=== PATIENT | female | born 1970 | race Caucasian/White ===

== ENCOUNTER 2016-06-18 13:21 | Inpatient (IN) | payer OTHER ==
[~2016-06-18] VITALS: Ht 160 cm; Wt 79.5 kg
[~2016-06-18 13:21] MED LIST: AMBI10TA PO; BUSP10TA PO; LIPI20TA PO; PERM5CRE TOPICAL
[2016-06-18 13:25] VITALS: BP 147/73; PULSE 80; RESP 16; TEMP 98.2; O2SAT 98
[2016-06-18] MEDS ORDERED: JUNETAB PO (17:01)
[2016-06-18] MEDS ORDERED: TEMA30CA PO (17:01)
[2016-06-18] MEDS ORDERED: CIPR-9 PO (17:01)
--- NOTE | 2016-06-18 17:13 | PD ---
HPI Chief Complaint: Skin Problem Time Seen by Provider: 17:12 Travel History International Travel<30 days: No Contact w/Intl Traveler<30days: No Traveled to known affect area: No History of Present Illness HPI 46-year-old female with history of hypercholesterolemia and breast augmentation [address] Escalante, presents to the emergency for evaluation.. Patient began having erythema inferior to her areola earlier this week Patient was initially started on Bactrim earlier this week.. She saw Dr. Escalante 2 days ago who switched her to ciprofloxacin. Patient was instructed to come to the emergency department if anything worsen. Patient began having low-grade temperature last evening. She states the redness has spread. She is having an increase in pain. Denies any other symptoms at this time. PFSH Past Medical History Anxiety: Yes High Cholesterol: Yes Diminished Hearing: No ?: Not LMP: 06/06/16 Social History Alcohol Use: No Tobacco Use: No Substance Use: No Allergies-Medications (Allergen,Severity, Reaction): Coded Allergies: No Known Allergies (Unverified , 02/06/16) Reported Meds & Prescriptions Reported Meds & Active Scripts Active Reported Temazepam 30 Mg Cap 30 Mg PO HS PRN 04/08 (Norethindrone-Ethinyl Estradiol) 1-20 Mg-Mcg Tab 1 Tab PO DAILY Cipro (Ciprofloxacin HCl) 500 Mg Tab 500 Mg PO Lipitor (Atorvastatin Calcium) 20 Mg Tab 20 Mg PO HS Review of Systems Except as stated in HPI: all other systems reviewed are Neg Physical Exam Narrative GENERAL: Well-nourished female patient, in no acute distress SKIN: Focused skin assessment warm/dry. All incision sites around the area a lot and inferior breast with incision and the breast cleft near the chest wall. There is a 6 cm area of erythema in diameter inferior to the area a lot. Incision site under the left breast is with a spot of dehiscence and yellow slough. There is a very small area of dehiscence in the right incision site inferior to the right breast. No active drainage. Breasts are warm to touch. HEAD: Atraumatic. Normocephalic. EYES: Pupils equal and round. No scleral icterus. No injection or drainage. ENT: No nasal bleeding or discharge. Mucous membranes pink and moist. NECK: Trachea midline. No JVD. CARDIOVASCULAR: Regular rate and rhythm. No murmur appreciated. RESPIRATORY: No accessory muscle use. Clear to auscultation. Breath sounds equal bilaterally. GASTROINTESTINAL: Abdomen soft, non-tender, nondistended. Hepatic and splenic margins not palpable. MUSCULOSKELETAL: No obvious deformities. No clubbing. No cyanosis. No edema. NEUROLOGICAL: Awake and alert. No obvious cranial nerve deficits. Motor grossly within normal limits. Normal speech. PSYCHIATRIC: Appropriate mood and affect; insight and judgment normal. Data Data Last Documented VS Vital Signs Date Time Temp Pulse Resp B/P Pulse Ox O2 Delivery O2 Flow Rate FiO2 06/18/16 17:20 97 Nasal Cannula 2 06/18/16 17:10 18 06/18/16 13:25 98.2 80 147/73 Orders Complete Blood Count With Diff (06/18/16 17:13) Prothrombin Time / Inr (Pt) (06/18/16 17:13) Act Partial Throm Time (Ptt) (06/18/16 17:13) Urinalysis - C+S If Indicated (06/18/16 17:13) Blood Culture (06/18/16 17:13) Blood Glucose (06/18/16 17:13) Ecg Monitoring (06/18/16 17:13) Iv Access Insert/Monitor (06/18/16 17:13) Oximetry (06/18/16 17:13) Oxygen Administration (06/18/16 17:13) Basic Metabolic Panel (Bmp) (06/18/16 17:13) Vancomycin Inj (Vancomycin Inj) (06/18/16 18:30) Sodium Chlor 0.9% 1000 Ml Inj (Ns 1000 M (06/18/16 18:30) Ketorolac Inj (Toradol Inj) (06/18/16 18:30) Piperacil-Tazo 3.375 Gm Premix (Zosyn 3. (06/18/16 19:00) Admit To Inpatient (06/18/16 ) Code Status (06/18/16 19:22) Vital Signs (Adult) Q4H (06/18/16 19:22) Activity Oob With Assistance (06/18/16 19:22) Diet Regular Basic (06/19/16 Breakfast) Sodium Chloride 0.9% Flush (Ns Flush) (06/18/16 19:30) Sodium Chloride 0.9% Flush (Ns Flush) (06/18/16 21:00) Acetaminophen (Tylenol) (06/18/16 19:30) Ondansetron Inj (Zofran Inj) (06/18/16 19:30) Magnesium Hydroxide Liq (Milk Of Magnesi (06/18/16 19:30) Temazepam (Restoril) (06/18/16 19:30) Basic Metabolic Panel (Bmp) (06/19/16 06:00) Complete Blood Count With Diff (06/19/16 06:00) Chest, Single Ap (06/18/16 19:22) Electrocardiogram (06/18/16 19:22) Scd Bilateral/Knee High NOE.BID (06/18/16 19:22) Naloxone Inj (Narcan Inj) (06/18/16 19:30) Inpatient Certification (06/18/16 ) Vancomycin Inj (Vancomycin Inj) (06/19/16 07:00) Piperacil-Tazo 4.5 Gm Premix (Zosyn 4.5 (06/19/16 01:00) Clonidine (Catapres) (06/18/16 19:30) Atorvastatin (Lipitor) (06/18/16 21:00) Consult Plastic Surgery (06/18/16 ) Admit Order (Ed Use Only) (06/18/16 19:32) Labs Laboratory Tests Test 06/18/16 17:10 White Blood Count 8.4 TH/MM3 Red Blood Count 5.18 MIL/MM3 Hemoglobin 15.2 GM/DL Hematocrit 45.9 % Mean Corpuscular Volume 88.7 FL Mean Corpuscular Hemoglobin 29.3 PG Mean Corpuscular Hemoglobin 33.0 % Concent Red Cell Distribution Width 13.2 % Platelet Count 290 TH/MM3 Mean Platelet Volume 9.2 FL Neutrophils (%) (Auto) 69.1 % Lymphocytes (%) (Auto) 19.6 % Monocytes (%) (Auto) 5.8 % Eosinophils (%) (Auto) 4.7 % Basophils (%) (Auto) 0.8 % Neutrophils # (Auto) 5.8 TH/MM3 Lymphocytes # (Auto) 1.6 TH/MM3 Monocytes # (Auto) 0.5 TH/MM3 Eosinophils # (Auto) 0.4 TH/MM3 Basophils # (Auto) 0.1 TH/MM3 CBC Comment DIFF FINAL Differential Comment Prothrombin Time 10.3 SEC Prothromb Time International 0.9 RATIO Ratio Activated Partial 24.0 SEC Thromboplast Time Urine Color LIGHT-YELLOW Urine Turbidity CLEAR Urine pH 5.5 Urine Specific [place] 1.006 Urine Protein NEG mg/dL Urine Glucose (UA) NEG mg/dL Urine Ketones NEG mg/dL Urine Occult Blood NEG Urine Nitrite NEG Urine Bilirubin NEG Urine Urobilinogen LESS THAN 2.0 MG/DL Urine Leukocyte Esterase NEG Urine RBC LESS THAN 1 /hpf Urine WBC 1 /hpf Urine Squamous Epithelial <1 /hpf Cells Urine Mucus FEW /lpf Microscopic Urinalysis Comment CATH-CULT NOT IND Sodium Level 139 MEQ/L Potassium Level 3.5 MEQ/L Chloride Level 104 MEQ/L Carbon Dioxide Level 26.2 MEQ/L Anion Gap 9 MEQ/L Blood Urea Nitrogen 9 MG/DL Creatinine 0.74 MG/DL Estimat Glomerular Filtration 84 ML/MIN Rate Random Glucose 86 MG/DL Calcium Level 9.0 MG/DL [facility] Medical Decision Making Medical Screen Exam Complete: Yes Emergency Medical Condition: Yes Medical Record Reviewed: Yes Differential Diagnosis Cellulitis versus abscess versus wound dehiscence versus postop infection Narrative Course 46-year-old female presents to emergency department for evaluation of worsening cellulitis of her bilateral breasts following augmentation. Patient is without distress. Area of erythema does extend outside of the areas marked by Dr. Escalante yesterday. I spoke with Dr. Escalante. She requests vancomycin and Zosyn and admission to medicine. I spoke with Dr. Garcia. Patient will be admitted to his service. Diagnosis Primary Impression: Cellulitis of left breast Additional Impressions: Cellulitis of right breast Failure of outpatient treatment Admitting Information Admitting Physician Requests: Admit Condition: Stable StuartMonica phambernadette NORWOOD Jun 18, 2016 17:13
[2016-06-18 17:20] VITALS: O2SAT 97
[2016-06-18 17:44] LABS: AUTOMATED NEUTROPHIL # 5.8 TH/MM3 (1.8-7.7); BASOPHIL # 0.1 TH/MM3 (0-0.2); BASOPHIL % 0.8 % (0.0-2.0); EOSINOPHIL # 0.4 TH/MM3 (0-0.4); EOSINOPHIL % 4.7 % (0.0-4.0); HEMATOCRIT 45.9 % (35.0-46.0); HEMO FLAGS DIFF FINAL; LYMPH % 19.6 % (9.0-44.0); LYMPHOCYTE # 1.6 TH/MM3 (1.0-4.8); MEAN CELL VOLUME 88.7 FL (80.0-100.0); MEAN CORPUSCULAR HEMOGLOBIN 29.3 PG (27.0-34.0); MONO % 5.8 % (0.0-8.0); NEUT % 69.1 % (16.0-70.0); PLATELET COUNT 290 TH/MM3 (150-450); RED BLOOD COUNT 5.18 MIL/MM3 (4.00-5.30); RED CELL DISTRIBUTION WIDTH 13.2 % (11.6-17.2); WHITE BLOOD COUNT 8.4 TH/MM3 (4.0-11.0)
[2016-06-18 17:56] LABS: INTERNATIONAL NORMALIZED RATIO 0.9 RATIO; PROTHROMBIN TIME - PATIENT 10.3 SEC (9.8-11.6)
[2016-06-18 18:05] LABS: BICARBONATE 26.2 MEQ/L (21.0-32.0); POTASSIUM 3.5 MEQ/L (3.5-5.1)
[2016-06-18 18:12] LABS: BLOOD, URINE NEG (NEG); COMMENT (UR) CATH-CULT NOT IND; CULTURE IF INDICATED CATH CULTURE NOT IND; GLUCOSE,URINE NEG (NEG); KETONE, URINE NEG (NEG); MUCUS URINE FEW /lpf (OCC); NITRITE,URINE NEG (NEG); PH, URINE 5.5 (5.0-8.5); SQUAMOUS EPITHELIAL CELL URINE <1 /hpf (0-5); URINE COLOR LIGHT-YELLOW (YELLW/STRAW)
[2016-06-18] MEDS ORDERED: VANCOMYCIN INJ 1,000 MG in SODIUM CHLOR 0.9% 250 ML INJ 250 ML IV ONE (18:30)
[2016-06-18] MEDS ORDERED: KETOROLAC TROMETHAMINE 30 MG/ML (IVP) VIAL IV PUSH ONE (18:30)
[2016-06-18] MEDS ORDERED: SODIUM CHLOR 0.9% 1000 ML INJ 1,000 ML IV ONE (18:30)
[2016-06-18 19:00] VITALS: BP 132/81; PULSE 68; RESP 16; TEMP 99.1; O2SAT 99
[2016-06-18] MEDS ORDERED: PIPERACIL-TAZO 3.375 GM PREMIX 50 ML IV ONE (19:00)
[2016-06-18] MEDS ORDERED: NALOXONE HCL 0.4 MG/ML AMP IV PRN (19:30)
[2016-06-18] MEDS ORDERED: MAGNESIUM HYDROXIDE SUSP 30 ML CUP PO PRN (19:30)
[2016-06-18] MEDS ORDERED: cloNIDine HCL 0.2 MG TAB PO PRN (19:30)
[2016-06-18] MEDS ORDERED: ACETAMINOPHEN 325 MG TAB PO PRN (19:30)
[2016-06-18] MEDS ORDERED: HYDR-3533 PO (19:49)
[2016-06-18] MEDS ORDERED: Vancomycin Consult Pharmacy 1 EA OTHER SCH (20:00)
--- NOTE | 2016-06-18 20:42 | RADRPT ---
EXAM DATE/TIME: 06/18/2016 20:10 [place] COMPARISON: No previous studies available for comparison. INDICATIONS : Breast infection post surgery. MEDICAL HISTORY : None. SURGICAL HISTORY : Breast implants 06/01/2016. ENCOUNTER: Initial ACUITY: 3 days PAIN SCORE: 5/10 LOCATION: chest FINDINGS: A single view of the chest demonstrates the lungs to be symmetrically aerated without evidence of mas s, infiltrate or effusion. The cardiomediastinal contours are unremarkable. Osseous structures are intact. CONCLUSION: The lungs are clear. Keshawn Jaffe MD on June 18, 2016 at 20:40 Board Certified Radiologist. This report was verified electronically.
[2016-06-18] MEDS: ATORVASTATIN 20 MG TAB PO SCH (20:54)
[2016-06-18] MEDS: ACETAMINOPHEN/HYDROcodone 325 MG/5 MG TAB PO PRN (20:55)
[2016-06-18 21:00] VITALS: BP 147/102; PULSE 83; RESP 18; TEMP 98; O2SAT 98
[2016-06-18] MEDS: SODIUM CHLORIDE 0.9% FLUSH 10 ML FLUSH IV FLUSH SCH (21:00)
--- NOTE | 2016-06-18 23:38 | EKG ---
Date Performed: 06/18/2016 Time Performed: 19:44:01 PTAGE: 46 years EKG: Sinus rhythm NORMAL ECG NO PREVIOUS TRACING DOCTOR: Regino Rodriguez Interpretating Date/Time 06/18/2016 23:37:35
[2016-06-19] VITALS: BP 110/62; PULSE 76; RESP 17; TEMP 98.4; O2SAT 98
[2016-06-19] MEDS: TEMAZEPAM 15 MG CAP PO PRN ×2 (00:23→22:53)
[2016-06-19] MEDS ORDERED: PIPERACIL-TAZO 4.5 GM PREMIX 100 ML IV SCH (01:00)
[2016-06-19 04:00] VITALS: BP 109/66; PULSE 65; RESP 16; TEMP 95.7; O2SAT 100
[2016-06-19] MEDS: VANCOMYCIN INJ 1,000 MG in SODIUM CHLOR 0.9% 250 ML INJ 250 ML IV SCH ×2 (05:11→18:01)
[2016-06-19] MEDS: ACETAMINOPHEN/HYDROcodone 325 MG/5 MG TAB PO PRN ×3 (05:11→20:53)
[2016-06-19 08:00] VITALS: BP 120/61; PULSE 65; RESP 16; TEMP 97.3; O2SAT 100
[2016-06-19 08:26] LABS: AUTOMATED NEUTROPHIL # 4.6 TH/MM3 (1.8-7.7); BASOPHIL # 0.1 TH/MM3 (0-0.2); BASOPHIL % 1.2 % (0.0-2.0); EOSINOPHIL # 0.5 TH/MM3 (0-0.4); EOSINOPHIL % 6.8 % (0.0-4.0); HEMATOCRIT 39.4 % (35.0-46.0); HEMO FLAGS DIFF FINAL; LYMPH % 19.9 % (9.0-44.0); LYMPHOCYTE # 1.4 TH/MM3 (1.0-4.8); MEAN CELL VOLUME 87.6 FL (80.0-100.0); MEAN CORPUSCULAR HEMOGLOBIN 29.7 PG (27.0-34.0); MONO % 7.9 % (0.0-8.0); NEUT % 64.2 % (16.0-70.0); PLATELET COUNT 249 TH/MM3 (150-450); RED CELL DISTRIBUTION WIDTH 13.1 % (11.6-17.2); WHITE BLOOD COUNT 7.1 TH/MM3 (4.0-11.0)
[2016-06-19 08:54] LABS: BICARBONATE 27.5 MEQ/L (21.0-32.0); POTASSIUM 3.7 MEQ/L (3.5-5.1)
[2016-06-19] MEDS: PIPERACIL-TAZO 4.5 GM PREMIX 100 ML IV SCH ×3 (08:59→20:50)
[2016-06-19] MEDS: SODIUM CHLORIDE 0.9% FLUSH 10 ML FLUSH IV FLUSH SCH ×2 (09:00→20:52)
[2016-06-19] MEDS: ONDANSETRON HCL 4 MG/2 ML VIAL IVP PRN ×2 (09:55→20:54)
--- NOTE | 2016-06-19 11:07 | PD.PLAS.PN ---
Subjective Remarks Patient is doing well without complaints. She was hospitalized for symmetric redness of each breast following breast augmentation mastopexy 2.5 weeks ago. Objective Vital Signs Date Time Temp Pulse Resp B/P Pulse Ox O2 Delivery O2 Flow Rate FiO2 06/19/16 08:00 97.3 65 16 120/61 100 06/19/16 06:30 19 06/19/16 04:00 95.7 65 16 109/66 100 06/19/16 00:00 98.4 76 17 110/62 98 06/18/16 21:00 98.0 83 18 147/102 98 06/18/16 19:00 99.1 68 16 132/81 99 06/18/16 17:20 97 Nasal Cannula 2 06/18/16 17:19 97 Nasal Cannula 2 06/18/16 17:10 18 06/18/16 13:25 98.2 80 16 147/73 98 I/O 06/18/16 06/18/16 06/18/16 06/19/16 06/19/16 06/19/16 07:00 15:00 23:00 07:00 15:00 23:00 Intake Total 240 ml 909 ml 120 ml Balance 240 ml 909 ml 120 ml Intake Oral 240 ml 480 ml 120 ml IV Total 429 ml # Voids 4 Laboratory Tests Test 06/18/16 06/19/16 17:10 07:17 White Blood Count 8.4 7.1 Red Blood Count 5.18 4.50 Hemoglobin 15.2 13.4 Hematocrit 45.9 39.4 Mean Corpuscular Volume 88.7 87.6 Mean Corpuscular Hemoglobin 29.3 29.7 Mean Corpuscular Hemoglobin 33.0 34.0 Concent Red Cell Distribution Width 13.2 13.1 Platelet Count 290 249 Mean Platelet Volume 9.2 9.2 Neutrophils (%) (Auto) 69.1 64.2 Lymphocytes (%) (Auto) 19.6 19.9 Monocytes (%) (Auto) 5.8 7.9 Eosinophils (%) (Auto) 4.7 6.8 Basophils (%) (Auto) 0.8 1.2 Neutrophils # (Auto) 5.8 4.6 Lymphocytes # (Auto) 1.6 1.4 Monocytes # (Auto) 0.5 0.6 Eosinophils # (Auto) 0.4 0.5 Basophils # (Auto) 0.1 0.1 CBC Comment DIFF FINAL DIFF FINAL Differential Comment Prothrombin Time 10.3 Prothromb Time International 0.9 Ratio Activated Partial 24.0 Thromboplast Time Urine Color LIGHT-YELLOW Urine Turbidity CLEAR Urine pH 5.5 Urine Specific [place] 1.006 Urine Protein NEG Urine Glucose (UA) NEG Urine Ketones NEG Urine Occult Blood NEG Urine Nitrite NEG Urine Bilirubin NEG Urine Urobilinogen LESS THAN 2.0 Urine Leukocyte Esterase NEG Urine RBC LESS THAN 1 Urine WBC 1 Urine Squamous Epithelial <1 Cells Urine Mucus FEW Microscopic Urinalysis Comment CATH-CULT NOT IND Sodium Level 139 140 Potassium Level 3.5 3.7 Chloride Level 104 106 Carbon Dioxide Level 26.2 27.5 Anion Gap 9 7 Blood Urea Nitrogen 9 14 Creatinine 0.74 0.78 Estimat Glomerular Filtration 84 79 Rate Random Glucose 86 86 Calcium Level 9.0 8.6 Date/Time Procedure Status Source Growth 06/18/16 17:30 Aerobic Blood Culture Received Blood Peripheral Pending 06/18/16 17:30 Anaerobic Blood Culture Received Blood Peripheral Pending Result Diagram: 06/19/16 0717 06/19/16 0717 Exam Findings Breasts: equal redness in the sam-areolar region extending down to the IMF bilaterally Medications and IVs Vanc and Zosyn Assessment and Plan Assessment and Plan Patient has breast redness of unknown origin. Discharge Planning The redness has improved with vancomycin and zosyn. We should continue the antibiotics for another 24 hours. Ilana Escalante MD Jun 19, 2016 11:07
[2016-06-19 12:00] VITALS: BP 115/70; PULSE 62; RESP 17; TEMP 97.1; O2SAT 98
--- NOTE | 2016-06-19 14:15 | HHI.HP ---
HPI Service CP Hospitalists Primary Care Physician Non-Staff Admission Diagnosis Bilat Breast Cellulitis; Failed outpt tx Chief Complaint: increasing redness and pain at breasts Travel History International Travel<30 Days: No Contact w/Intl Traveler <30 Da: No Traveled to Known Affected Are: No History of Present Illness Patient is a pleasant 46-year-old female with history of anxiety and hyperlipidemia. Patient underwent bilateral breast augmentation with lift approximately [address] Escalante. Patient reports that approximately 3- 4 days ago she developed bilateral breast erythema inferior to the areola of each breast. Patient was prescribed Bactrim and took one dose without relief. Antibiotics were changed to ciprofloxacin without improvement. Patient developed low-grade fever 2 days ago with increasing pain and redness and was directed to the ER. Patient was started on vancomycin and Zyvox per recommendations of her surgeon. Case was discussed this morning with patient's surgeon, Dr. Escalante. Dr. Escalante feels that the patient's erythema has made an improvement since starting on IV antibiotic treatment. Patient interviewed and examined in the presence of patient's floor nurseVicky Review of Systems Constitutional: DENIES: Diaphoretic episodes, Fatigue, Fever, Weight gain, Weight loss, Chills, Dizziness, Change in appetite, Night Sweats Endocrine: DENIES: Heat/cold intolerance, Polydipsia, Polyuria, Polyphagia Eyes: DENIES: Blurred vision, Diplopia, Eye inflammation, Eye pain, Vision loss , Photosensitivity, Double Vision Ears, nose, mouth, throat: DENIES: Tinnitus, Hearing loss, Vertigo, Nasal discharge, Oral lesions, Throat pain, Hoarseness, Ear Pain, Running Nose, Epistaxis, Sinus Pain, Toothache, Odynophagia Respiratory: DENIES: Apneas, Cough, Snoring, Wheezing, Hemoptysis, Sputum production, Shortness of breath Cardiovascular: DENIES: Chest pain, Palpitations, Syncope, Dyspnea on Exertion , PND, Lower Extremity Edema, Orthopnea, Claudication Gastrointestinal: DENIES: Abdominal pain, Black stools, Bloody stools, BRB per rectum, Constipation, Diarrhea, GERD, Nausea, Reflux, Vomiting, Difficulty Swallowing, Anorexia Genitourinary: DENIES: Urinary frequency, Urinary incontinence, Urgency, Hematuria, Dysuria, Nocturia Musculoskeletal: DENIES: Joint pain, Muscle aches, Stiffness, Joint Swelling, Back pain, Neck pain Integumentary: COMPLAINS OF: Breast skin changes, DENIES: Abnormal pigmentation, Pruritus, Rash, Nail changes, Breast masses, Nipple discharge Hematologic/lymphatic: DENIES: Bruising, Lymphadenopathy Immunologic/allergic: DENIES: Eczema, Urticaria Neurologic: DENIES: Abnormal gait, Headache, Localized weakness, Paresthesias, Seizures, Speech Problems, Tremor, Poor Balance Psychiatric: COMPLAINS OF: Anxiety, DENIES: Confusion, Mood changes, Depression, Hallucinations, Agitation, Suicidal Ideation, Homicidal Ideation, Delusions, History of Bipolar, History of Schizophrenia Past Family Social History Past Medical History 1) anxiety 2) hyperlipidemia 3) insomnia Past Surgical History 1) bilateral breast augmentation with lift Reported Medications Reported Meds & Active Scripts Active Reported Lortab (Hydrocodone-Acetaminophen) 5-325 Mg Tab 1 Tab PO Q6H PRN Temazepam 30 Mg Cap 30 Mg PO HS PRN [place] 04/08 (Norethindrone-Ethinyl Estradiol) 1-20 Mg-Mcg Tab 1 Tab PO DAILY Cipro (Ciprofloxacin HCl) 500 Mg Tab 500 Mg PO Lipitor (Atorvastatin Calcium) 20 Mg Tab 20 Mg PO HS Allergies: Coded Allergies: No Known Allergies (Unverified , 02/06/16) Family History - Mother living age 77, hyperlipidemia - Father age 71, coronary artery disease, diabetes - Sister living age 41, hyperlipidemia Social History - - Significant other accompanies patient in her hospital room - Never a smoker - Occasional alcoholic beverage - No illicit street drugs Physical Exam Vital Signs Vital Signs Date Time Temp Pulse Resp B/P Pulse Ox O2 Delivery O2 Flow Rate FiO2 06/19/16 08:00 97.3 65 16 120/61 100 06/19/16 06:30 19 06/19/16 04:00 95.7 65 16 109/66 100 06/19/16 00:00 98.4 76 17 110/62 98 06/18/16 21:00 98.0 83 18 147/102 98 06/18/16 19:00 99.1 68 16 132/81 99 06/18/16 17:20 97 Nasal Cannula 2 06/18/16 17:19 97 Nasal Cannula 2 06/18/16 17:10 18 Physical Exam GENERAL: This is a well-nourished, well-developed patient, in no apparent distress. SKIN: No rashes, ecchymoses or lesions. Cool and dry. HEAD: Atraumatic. Normocephalic. No temporal or scalp tenderness. EYES: Pupils equal round and reactive. Extraocular motions intact. No scleral icterus. No injection or drainage. ENT: Nose without bleeding, purulent drainage or septal hematoma. Throat without erythema, tonsillar hypertrophy or exudate. Uvula midline. Airway patent. NECK: Trachea midline. No JVD or lymphadenopathy. Supple, nontender, no meningeal signs. CARDIOVASCULAR: Regular rate and rhythm without murmurs, gallops, or rubs. RESPIRATORY: Clear to auscultation. Breath sounds equal bilaterally. No wheezes , rales, or rhonchi. GASTROINTESTINAL: Abdomen soft, non-tender, nondistended. No hepato-splenomegaly , or palpable masses. No guarding. MUSCULOSKELETAL: Extremities without clubbing, cyanosis, or edema. No joint tenderness, effusion, or edema noted. No calf tenderness. Negative Homans sign bilaterally. NEUROLOGICAL: Awake and alert. Cranial nerves II through XII intact. Motor and sensory grossly within normal limits. Five out of 5 muscle strength in all muscle groups. Normal speech. Breasts: Mild erythema inferior to both areolas, surgical wounds are well approximated, no wound discharge, surgical wounds appear to be healing well Laboratory Laboratory Tests Test 06/18/16 06/19/16 17:10 07:17 White Blood Count 8.4 7.1 Red Blood Count 5.18 4.50 Hemoglobin 15.2 13.4 Hematocrit 45.9 39.4 Mean Corpuscular Volume 88.7 87.6 Mean Corpuscular Hemoglobin 29.3 29.7 Mean Corpuscular Hemoglobin 33.0 34.0 Concent Red Cell Distribution Width 13.2 13.1 Platelet Count 290 249 Mean Platelet Volume 9.2 9.2 Neutrophils (%) (Auto) 69.1 64.2 Lymphocytes (%) (Auto) 19.6 19.9 Monocytes (%) (Auto) 5.8 7.9 Eosinophils (%) (Auto) 4.7 6.8 Basophils (%) (Auto) 0.8 1.2 Neutrophils # (Auto) 5.8 4.6 Lymphocytes # (Auto) 1.6 1.4 Monocytes # (Auto) 0.5 0.6 Eosinophils # (Auto) 0.4 0.5 Basophils # (Auto) 0.1 0.1 CBC Comment DIFF FINAL DIFF FINAL Differential Comment Prothrombin Time 10.3 Prothromb Time International 0.9 Ratio Activated Partial 24.0 Thromboplast Time Urine Color LIGHT-YELLOW Urine Turbidity CLEAR Urine pH 5.5 Urine Specific [place] 1.006 Urine Protein NEG Urine Glucose (UA) NEG Urine Ketones NEG Urine Occult Blood NEG Urine Nitrite NEG Urine Bilirubin NEG Urine Urobilinogen LESS THAN 2.0 Urine Leukocyte Esterase NEG Urine RBC LESS THAN 1 Urine WBC 1 Urine Squamous Epithelial <1 Cells Urine Mucus FEW Microscopic Urinalysis Comment CATH-CULT NOT IND Sodium Level 139 140 Potassium Level 3.5 3.7 Chloride Level 104 106 Carbon Dioxide Level 26.2 27.5 Anion Gap 9 7 Blood Urea Nitrogen 9 14 Creatinine 0.74 0.78 Estimat Glomerular Filtration 84 79 Rate Random Glucose 86 86 Calcium Level 9.0 8.6 Date/Time Procedure Status Source Growth 06/18/16 17:30 Aerobic Blood Culture - Preliminary Resulted Blood Peripheral NO GROWTH IN 1 DAY 06/18/16 17:30 Anaerobic Blood Culture - Preliminary Resulted Blood Peripheral NO GROWTH IN 1 DAY Result Diagram: 06/19/1617 06/19/1617 Imaging Last Impressions Chest X-Ray 06/18/161921 Signed Impressions: Service Date/Time: Saturday, June 18, 2016 20:10 - CONCLUSION: The lungs are clear. Keshawn Jaffe MD Septic Shock Reassessment Heart: Regular rate and rhythm Lungs: Clear Skin: Warm Peripheral Pulses: Bounding Right Radial Bounding Left Radial Bounding Right Popliteal Bounding Left Popliteal Bounding Right Dorsalis Pedis Bounding Left Dorsalis Pedis Bounding Right Posterior Tibial Bounding Left Posterior Tibial Capillary Refill: Brisk Assessment and Plan Problem List: (1) Cellulitis of right breast Status: Acute Plan: - Patient underwent bilateral breast augmentation 2 weeks ago - Patient developed bilateral breast redness inferior to her areolas approximately 4 days ago - Patient failed to improve on outpatient antibiotic treatment, initially Bactrim then changed to ciprofloxacin - Per surgeon, patient started on vancomycin and Zyvox with clinical improvement - Continue vancomycin and Zyvox - Anticipate discharge to home tomorrow if continued improvement - Consider Augmentin upon discharge (2) Cellulitis of left breast Status: Acute Plan: - See above (3) Failure of outpatient treatment Status: Acute Plan: - See above (4) Hyperlipemia Status: Chronic Plan: - Continue Lipitor (5) Insomnia Status: Acute Plan: - Continue Restoril prn Physician Certification 2 Midnight Certification Type: Admission for Inpatient Services Order for Inpatient Services The services are ordered in accordance with Medicare regulations or non- Medicare payer requirements, as applicable. In the case of services not specified as inpatient-only, they are appropriately provided as inpatient services in accordance with the 2-midnight benchmark. Estimated LOS (days): 3 3 days is the estimated time the patient will need to remain in the hospital, assuming treatment plan goals are met and no additional complications. Post-Hospital Plan: Home Problem Qualifiers (1) Hyperlipemia: Qualified Code: E78.5 - Hyperlipidemia, unspecified hyperlipidemia type (2) Insomnia: Qualified Code: G47.00 - Insomnia, unspecified type Eddi Garcia DO Jun 19, 2016 14:15
[2016-06-19 16:00] VITALS: BP 108/62; PULSE 60; RESP 18; TEMP 97.3; O2SAT 98
[2016-06-19 20:00] VITALS: BP 113/53; PULSE 77; RESP 17; TEMP 97.5; O2SAT 98
[2016-06-19] MEDS: ATORVASTATIN 20 MG TAB PO SCH (20:52)
[2016-06-19] MEDS: SODIUM CHLORIDE 0.9% FLUSH 10 ML FLUSH IV FLUSH PRN (22:54)
[2016-06-20] VITALS: BP 112/63; PULSE 68; RESP 18; TEMP 96.4; O2SAT 98
[2016-06-20] MEDS: PIPERACIL-TAZO 4.5 GM PREMIX 100 ML IV SCH ×4 (01:46→22:25)
[2016-06-20] MEDS: ACETAMINOPHEN/HYDROcodone 325 MG/5 MG TAB PO PRN ×3 (03:46→22:25)
[2016-06-20 04:00] VITALS: BP 96/53; PULSE 67; RESP 17; TEMP 96.8; O2SAT 99
[2016-06-20] MEDS ORDERED: PHARMACY ORDERED LAB ONE (05:45)
[2016-06-20] MEDS: SODIUM CHLORIDE 0.9% FLUSH 10 ML FLUSH IV FLUSH PRN (06:47)
[2016-06-20] MEDS: VANCOMYCIN INJ 1,000 MG in SODIUM CHLOR 0.9% 250 ML INJ 250 ML IV SCH (06:47)
[2016-06-20 07:30] VITALS: BP 94/56; PULSE 64; RESP 20; TEMP 97.4; O2SAT 98
--- NOTE | 2016-06-20 08:42 | HHI.PR ---
Subjective Remarks says the pain/swelling/redness reduced over both breast incisions. Objective Vitals heart reg lung cta abd s/nt ext no edema manuel breast incisions with no drainage, light pink/redness fading and not hot to touch. Vital Signs Date Time Temp Pulse Resp B/P Pulse Ox O2 Delivery O2 Flow Rate FiO2 06/20/16 04:00 96.8 67 17 96/53 99 06/20/16 00:00 96.4 68 18 112/63 98 06/19/16 20:00 97.5 77 17 113/53 98 06/19/16 16:00 97.3 60 18 108/62 98 06/19/16 12:00 97.1 62 17 115/70 98 06/19/16 06/19/16 06/20/16 15:00 23:00 07:00 Intake Total 245 ml 1650 ml 420 ml Balance 245 ml 1650 ml 420 ml Intake Oral 120 ml 1200 ml 240 ml IV Total 125 ml 450 ml 180 ml # Voids 5 3 # Bowel Movements 2 2 Result Diagram: 06/19/1671606/19/16716 Imaging Last Impressions Chest X-Ray 06/18/161921 Signed Impressions: Service Date/Time: Saturday, June 18, 2016 20:10 - CONCLUSION: The lungs are clear. Keshawn Jaffe MD A/P Problem List: (1) Cellulitis of right breast Status: Acute Plan: - Patient underwent bilateral breast augmentation 2 weeks ago - Patient developed bilateral breast redness inferior to her areolas approximately 4 days ago - Patient failed to improve on outpatient antibiotic treatment, initially Bactrim x 1 dose - Per surgeon, patient started on vancomycin and zosyn. - Pt has had improvement of the cellulitis. She reports that her surgeon was ok with dc home today....but she is about to text her. I have no comparison as today is my first examination of her( I examined her in presence of Ilana CAR3)....will decide later today on d/c and check with her surgeon. plan for po abx. She has f/u appt tomorrow I'm told. (2) Cellulitis of left breast Status: Acute Plan: - See above (3) Failure of outpatient treatment Status: Acute Plan: - See above (4) Hyperlipemia Status: Chronic Plan: - Continue Lipitor (5) Insomnia Status: Acute Plan: - Continue Restoril prn Problem Qualifiers (1) Hyperlipemia: Qualified Code: E78.5 - Hyperlipidemia, unspecified hyperlipidemia type (2) Insomnia: Qualified Code: G47.00 - Insomnia, unspecified type Mitchell Portillo MD Jun 20, 2016 08:42
[2016-06-20] MEDS: SODIUM CHLORIDE 0.9% FLUSH 10 ML FLUSH IV FLUSH SCH ×2 (08:52→20:46)
[2016-06-20 11:50] VITALS: BP 125/71; PULSE 60; RESP 20; TEMP 97.5; O2SAT 96
[2016-06-20 15:50] VITALS: BP 113/54; PULSE 72; RESP 20; TEMP 97.6; O2SAT 97
[2016-06-20] MEDS: VANCOMYCIN INJ 1,250 MG in SODIUM CHLOR 0.9% 250 ML INJ 250 ML IV SCH (18:04)
[2016-06-20 20:00] VITALS: BP 139/71; PULSE 79; RESP 18; TEMP 97.4; O2SAT 98
[2016-06-20] MEDS: ATORVASTATIN 20 MG TAB PO SCH (20:43)
[2016-06-20] MEDS: TEMAZEPAM 15 MG CAP PO PRN (22:26)
[2016-06-21] VITALS: BP 123/64; PULSE 66; RESP 16; TEMP 97.7; O2SAT 98
[2016-06-21] MEDS: PIPERACIL-TAZO 4.5 GM PREMIX 100 ML IV SCH ×2 (03:18→08:49)
[2016-06-21 04:30] VITALS: BP 93/50; PULSE 63; RESP 16; TEMP 97.8; O2SAT 98
[2016-06-21] MEDS: VANCOMYCIN INJ 1,250 MG in SODIUM CHLOR 0.9% 250 ML INJ 250 ML IV SCH (06:00)
[2016-06-21] MEDS: ACETAMINOPHEN/HYDROcodone 325 MG/5 MG TAB PO PRN (06:37)
[2016-06-21 08:00] VITALS: BP 112/67; PULSE 68; RESP 16; TEMP 97; O2SAT 98
--- NOTE | 2016-06-21 09:10 | HHI.PR ---
Subjective Remarks less breast pain. no drainage. no f/c eager for d/c Objective Vitals heart reg lung cta abd s/nt ext no edema manuel breast incisions. no drainage. not hot, light redness seems more engorged vasculature. Vital Signs Date Time Temp Pulse Resp B/P Pulse Ox O2 Delivery O2 Flow Rate FiO2 06/21/16 08:00 97.0 68 16 112/67 98 06/21/16 04:30 97.8 63 16 93/50 98 06/21/16 00:00 97.7 66 16 123/64 98 06/20/16 23:25 18 06/20/16 20:00 97.4 79 18 139/71 98 06/20/16 15:50 97.6 72 20 113/54 97 06/20/16 11:50 97.5 60 20 125/71 96 06/20/16 06/20/16 06/21/16 15:00 23:00 07:00 Intake Total 222 ml 480 ml 480 ml Balance 222 ml 480 ml 480 ml Intake Oral 222 ml 480 ml 480 ml # Voids 1 2 1 # Bowel Movements 0 Result Diagram: 06/19/16 0717 06/21/16 0520 Imaging Last Impressions Chest X-Ray 06/18/161921 Signed Impressions: Service Date/Time: Saturday, June 18, 2016 20:10 - CONCLUSION: The lungs are clear. Keshawn Jafef MD A/P Problem List: (1) Cellulitis of right breast Status: Acute Plan: - Patient underwent bilateral breast augmentation 2 weeks ago - Patient developed bilateral breast redness inferior to her areolas approximately 4 days ago - Patient failed to improve on outpatient antibiotic treatment, initially Bactrim x 1 dose - Per surgeon, patient started on vancomycin and zosyn. - Pt examined again today in presence of Ilana MS3 and nurse. breast exam is improving and at this point swelling/pain and vascular engorgement seem improved and no spreading cellulitis noted. d/c on po abx. f/u this evening with surgery. (2) Cellulitis of left breast Status: Acute Plan: - See above (3) Failure of outpatient treatment Status: Acute Plan: - See above (4) Hyperlipemia Status: Chronic Plan: - Continue Lipitor (5) Insomnia Status: Acute Plan: - Continue Restoril prn Problem Qualifiers (1) Hyperlipemia: Qualified Code: E78.5 - Hyperlipidemia, unspecified hyperlipidemia type (2) Insomnia: Qualified Code: G47.00 - Insomnia, unspecified type Mitchell Portillo MD Jun 21, 2016 09:10
[2016-06-21] MEDS ORDERED: AUGM500T7 PO (09:12)
--- NOTE | 2016-06-21 09:13 | HHI.DCPOC ---
Discharge Care Plan Diagnosis: (1) Cellulitis of right breast (2) Cellulitis of left breast Goals to Promote Your Health * To prevent worsening of your condition and complications * To maintain your health at the optimal level Directions to Meet Your Goals Take your medications as prescribed Follow your dietary instruction Follow activity as directed Keep your appointments as scheduled Take your immunizations and boosters as scheduled If your symptoms worsen call your PCP, if no PCP go to Urgent Care Center or Emergency Room Smoking is Dangerous to Your Health. Avoid second hand smoke Call the 24-hour hour crisis hotline for domestic abuse at Mitchell Portillo MD Jun 21, 2016 09:13
[2016-06-22] MEDS ORDERED: PHARMACY ORDERED LAB ONE (03:45)
--- NOTE | 2016-07-11 22:03 | HHI.DS ---
Discharge Summary Admission Date Jun 18, 2016 at 19:33 Discharge Date: Jun 21, 2016 Admitting Diagnosis Bilat Breast Cellulitis; Failed outpt tx (1) Cellulitis of right breast Diagnosis: Principal (2) Cellulitis of left breast Diagnosis: Principal (3) Failure of outpatient treatment Diagnosis: Secondary (4) Hyperlipemia Diagnosis: Secondary (5) Insomnia Diagnosis: Secondary Brief History Patient is a pleasant 46-year-old female with history of anxiety and hyperlipidemia. Patient underwent bilateral breast augmentation with lift approximately [address] Escalante. Patient reports that approximately 3- 4 days ago she developed bilateral breast erythema inferior to the areola of each breast. Patient was prescribed Bactrim and took one dose without relief. Antibiotics were changed to ciprofloxacin without improvement. Patient developed low-grade fever 2 days ago with increasing pain and redness and was directed to the ER. Patient was started on vancomycin and Zyvox per recommendations of her surgeon. Case was discussed this morning with patient's surgeon, Dr. Escalante. Dr. Escalante feels that the patient's erythema has made an improvement since starting on IV antibiotic treatment. Patient interviewed and examined in the presence of patient's floor nurse, [facility] Course - Patient underwent bilateral breast augmentation 2 weeks ago - Patient developed bilateral breast redness inferior to her areolas approximately 4 days ago - Patient failed to improve on outpatient antibiotic treatment, initially Bactrim x 1 dose - Per surgeon, patient started on vancomycin and zosyn. - Pt examined again today in presence of Ilana CAR3 and nurse. breast exam is improving and at this point swelling/pain and vascular engorgement seem improved and no spreading cellulitis noted. d/c on po abx. f/u this evening with surgery. Pt Condition on Discharge: Stable Discharge Disposition: Discharge Home Discharge Instructions DIET: Follow Instructions for: As Tolerated, No Restrictions Activities you can perform: Regular-No Restrictions Follow up Referrals: Plastic Surgery - Today with Dr Escalante New Medications: Amoxicillin-Clavulanate (Augmentin) 500-125 mg Tab 500 MG PO Q8H Infection Days 7 Ref 0 TAB Continued Medications: Atorvastatin (Lipitor) 20 Mg Tab 20 MG PO HS Cholesterol Management #30 Ref 0 TAB Hydrocodone-Acetaminophen (Lortab) 5-325 Mg Tab 1 TAB PO Q6H PRN PAIN Ref 0 TAB Norethindrone-Ethinyl Estradiol (Junel 04/08) 1-20 Mg-Mcg Tab 1 TAB PO DAILY Control #1 Ref 0 PACK Temazepam (Temazepam) 30 Mg Cap 30 MG PO HS PRN INSOMNIA #30 Ref 0 CAP Discontinued Medications: Ciprofloxacin (Cipro) 500 Mg Tab 500 MG PO Infection Ref 0 TAB Mitchell Portillo MD Jul 11, 2016 22:03
== END 2016-06-21 11:04 | disposition home or self-care (01) | DRG 601 ==
LOC: NEPA 13:21 → NEDA 19:33 → HOCA 20:59
PROVIDERS: ADMIT Hospitalist; ATTEND Hospitalist
DX: N61.0 Mastitis without abscess (principal); E78.5 Hyperlipidemia, unspecified; N64.4 Mastodynia; G47.00 Insomnia, unspecified; Z98.82 Breast implant status
CPT/HCPCS: 71010; 76937; 80048; 80202; 81001; 82565; 85025; 85610; 85730; 87040; 93005; 96374; 96375; J1885; J2405; J2543; J3370; J7030; J7050